=== PATIENT | female | born 1985 | race Caucasian/White ===

== ENCOUNTER 2017-01-16 18:46 | Emergency (ER) | payer SELFPAY ==
[~2017-01-16] VITALS: Ht 170.2 cm; Wt 86.4 kg
[2017-01-16 18:50] VITALS: TEMP 36.9; Ht 170.2 cm; Wt 86.4 kg
[2017-01-16] MEDS ORDERED: HUMIRA INJ (19:36)
[2017-01-16] MEDS ORDERED: PRED10TA PO (19:36)
[2017-01-16] MEDS ORDERED: DEXAMETHASONE SOD INJ 4 MG/ML VIAL IV STA (19:40)
[2017-01-16] MEDS ORDERED: ALBUT/IPRATROP 3MG/0.5MG NEB 3 ML VIAL INH STA (19:40)
[2017-01-16] MEDS ORDERED: BENZONATATE 100MG CAP PO ONE (19:45)
[2017-01-16 20:02] LABS: BASO % 0.1 %; BASO ABS # 0.01 K/uL (0-0.2); COMPLETE YES; IG% 0.5 %; LYMPH % 18.1 %; LYMPH ABS # 1.38 K/uL (1.2-3.4); MEAN CORPUSCULAR HEMOGLOBIN 29.4 pg (25-34); MEAN CORPUSCULAR HGB CONC 33.4 g/dl (32-36); MONO % 6.3 %; PLATELET COUNT 233 K/uL (130-400); WHITE BLOOD COUNT 7.63 K/uL (4.8-10.8)
--- NOTE | 2017-01-16 20:15 | DIAGNOSTIC IMAGING REPORT ---
CHEST ONE VIEW PORTABLE CLINICAL HISTORY: 31 years-old Female presenting with sob, left chest pain. TECHNIQUE: Portable upright AP view of the chest was obtained. COMPARISON: None. FINDINGS: Cardiomediastinal silhouette normal. Lungs and pleural spaces clear. Osseous structures normal. Upper abdomen normal. IMPRESSION: 1. No acute cardiopulmonary disease. Electronically signed by: Adryan Burgos M.D. 01/16/2017 8:14 PM Dictated Date/Time: 01/16/2017 8:13 PM
[2017-01-16 20:18] LABS: BLOOD UREA NITROGEN 8 mg/dl (7-18); CREATININE 0.79 mg/dl (0.60-1.20); GLUCOSE 91 mg/dl (70-99)
[2017-01-16 20:19] LABS: ALT/SGPT 17 U/L (12-78); AST/SGOT 12 U/L (15-37); BUN/CREATININE RATIO 9.8 (10-20); CALCIUM 8.3 mg/dl (8.5-10.1); CARBON DIOXIDE 29 mmol/L (21-32); CHLORIDE 106 mmol/L (98-107); POTASSIUM 3.5 mmol/L (3.5-5.1); PREG INTERNAL NEGATIVE QC NEG CLEAR BACKGROUND; PREG INTERNAL POSITIVE QC POS CONTROL LINE; SODIUM 139 mmol/L (136-145)
[2017-01-16 20:23] LABS: ALB/GLOB RATIO 0.8 (0.9-2); ALKALINE PHOSPHATASE 70 U/L (45-117)
[2017-01-16] MEDS ORDERED: OPTIRAY 320 IV PRN (21:00)
[2017-01-16] MEDS ORDERED: DiphenhydrAMINE HCL 50 MG/ML VIAL IV STA (21:13)
--- NOTE | 2017-01-16 21:21 | DIAGNOSTIC IMAGING REPORT ---
(CHEST FOR PE) ANGIO WITH CLINICAL HISTORY: 31 years-old Female presenting with left-sided chest pain, elevated d-dimer, dizziness, clinical concern for pulmonary embolus. TECHNIQUE: Multidetector CT angiography of the chest was performed after administration of intravenous contrast. 3-D volumetric and/or maximum intensity projection (MIP) images were subsequently reconstructed for review. IV contrast: 94 mL of Optiray 320. A dose lowering technique was used consistent with the principles of ALARA (as low as reasonably achievable). COMPARISON: Chest x-ray performed earlier the same day. CT DOSE (mGy.cm): The estimated cumulative dose is 266.79 mGy.cm. FINDINGS: Industrial Organization Manager topogram: Unremarkable. Pulmonary vasculature: The study is adequate for assessment of the pulmonary vascular tree. No filling defect within the pulmonary arteries to suggest embolus. Main pulmonary artery is not enlarged. No flattening of the interventricular septum. No intracardiac intracardiac filling defect. No reflux of contrast into the hepatic veins. Remaining chest: On soft tissue windows, normal thyroid and thoracic inlet. Small right hilar lymph nodes with less pronounced small left hilar lymph nodes. Normal aorta. Normal heart size. No pericardial or pleural effusion. Upper abdomen normal. On lung windows, minimal dependent changes likely atelectasis. Airways patent. On bone windows, normal osseous structures. IMPRESSION: 1. No evidence of pulmonary embolus. No acute intrathoracic pathology. Electronically signed by: Adryan Burgos M.D. 01/16/2017 9:19 PM Dictated Date/Time: 01/16/2017 9:13 PM
--- NOTE | 2017-01-16 22:09 | EMERGENCY ROOM VISIT NOTE ---
History Report prepared by Wilver: Lilly Harrington Under the Supervision of: Dr. Tiarra Miguel D.O. First contact with patient: 19:26 Chief Complaint: SHORTNESS OF BREATH Stated Complaint: SOB, LIGHTHEADED, REFERRED Nursing Triage Summary: Patient reports shortness of breath, cough, and left rib pain for almost a week. Patient seen at urgent care and sent here for further evaluation. History of Present Illness The patient is a 31 year old female who presents to the Emergency Room with complaints of persistent SOB starting 1200 today. The patient has had cold symptoms with cough and rhinorrhea for the past 3-4 days. Her cough has been producing a yellow/green sputum. She had been having some left sided rib pain which she attributed to coughing. She has been using Dayquil, Nyquil, and cough drops. Around 1200 today, she started feeling SOB and lightheaded. She feels she cannot get enough air, like there is something sitting on her chest. She was sent to the ED from urgent care. She does not have any pain with breathing. She does not feel congested anymore. She has a headache across the front of her head. She denies any fever, palpitations, chest pain, or leg swelling. She has not gotten a flu shot this year. She has a history of rheumatoid arthritis and is on Humira and prednisone. She is not on control pills. She denies any family history of rheumatoid arthritis or other autoimmune disease. She has had a pleural effusion in the past. She has 5 children and is the director of a daycare. She has many sick contacts. Source of History: patient Onset: 1200 Position: other (global) Quality: other (SOB) Timing: other (persistent) Associated Symptoms: + headache, + cough, + chest pain, No fevers Note: Pt reports rhinorrhea, lightheadedness. Pt denies palpitations, leg swelling. Review of Systems See HPI for pertinent positives & negatives. A total of 10 systems reviewed and were otherwise negative. Past Medical & Surgical Medical Problems: (1) Rheumatoid arthritis Family History No pertinent family history stated. Social History Smoking Status: Never Smoker Housing Status: lives with family Occupation Status: employed Current/Historical Medications Scheduled Benzonatate (Tessalon Perles), 100 MG PO Q8 Guaifenesin-Codeine (Guaifenesin/Codeine), 5-10 ML PO HS Prednisone (Prednisone), 10 MG PO DAILY [Humira], 1 DOSE INJ [id number] Allergies Coded Allergies: Naproxen (Unverified Allergy, Unknown, GI ISSUES, 01/16/17) Physical Exam Vital Signs Date Time Temp Pulse Resp B/P (MAP) Pulse Ox O2 Delivery O2 Flow Rate FiO2 01/16/17 22:50 89 18 113/70 96 01/16/17 21:30 89 18 122/74 98 Room Air 01/16/17 20:22 95 18 116/69 97 Room Air 01/16/17 19:50 79 01/16/17 19:44 96 Room Air 01/16/17 18:50 36.9 86 20 137/85 96 Room Air Physical Exam GENERAL: hoarse voice, alert, well appearing, well nourished, no distress, non- toxic EYE EXAM: normal conjunctiva, PERRL and EOM's grossly intact OROPHARYNX: no exudate, no erythema, lips, buccal mucosa, and tongue normal and mucous membranes are moist NECK: supple, no nuchal rigidity, no adenopathy, non-tender LUNGS: Clear to auscultation. Normal chest wall mechanics HEART: no murmurs, S1 normal and S2 normal ABDOMEN: abdomen soft, non-tender, normo-active bowel sounds, no masses, no rebound or guarding. BACK: Back is symmetrical on inspection and there is no deformity, no midline tenderness, no CVA tenderness. SKIN: no rashes and no bruising UPPER EXTREMITIES: upper extremities are grossly normal. LOWER EXTREMITIES: No pitting edema. NEURO EXAM: Normal sensorium, cranial nerves II-XII grossly intact, normal speech, no gross weakness of arms, no gross weakness of legs. Medical Decision & Procedures ER Provider Diagnostic Interpretation: Radiology results have been interpreted by the radiologist and reviewed by me. CHEST ONE VIEW PORTABLE CLINICAL HISTORY: 31 years-old Female presenting with sob, left chest pain. TECHNIQUE: Portable upright AP view of the chest was obtained. COMPARISON: None. FINDINGS: Cardiomediastinal silhouette normal. Lungs and pleural spaces clear. Osseous structures normal. Upper abdomen normal. IMPRESSION: 1. No acute cardiopulmonary disease. Electronically signed by: Adryan Burgos M.D. 01/16/2017 8:14 PM Dictated Date/Time: 01/16/2017 8:13 PM (CHEST FOR PE) ANGIO WITH CLINICAL HISTORY: 31 years-old Female presenting with left-sided chest pain, elevated d-dimer, dizziness, clinical concern for pulmonary embolus. TECHNIQUE: Multidetector CT angiography of the chest was performed after administration of intravenous contrast. 3-D volumetric and/or maximum intensity projection (MIP) images were subsequently reconstructed for review. IV contrast: 94 mL of Optiray 320. A dose lowering technique was used consistent with the principles of ALARA (as low as reasonably achievable). COMPARISON: Chest x-ray performed earlier the same day. CT DOSE (mGy.cm): The estimated cumulative dose is 266.79 mGy.cm. FINDINGS: Simulation Technician topogram: Unremarkable. Pulmonary vasculature: The study is adequate for assessment of the pulmonary vascular tree. No filling defect within the pulmonary arteries to suggest embolus. Main pulmonary artery is not enlarged. No flattening of the interventricular septum. No intracardiac intracardiac filling defect. No reflux of contrast into the hepatic veins. Remaining chest: On soft tissue windows, normal thyroid and thoracic inlet. Small right hilar lymph nodes with less pronounced small left hilar lymph nodes. Normal aorta. Normal heart size. No pericardial or pleural effusion. Upper abdomen normal. On lung windows, minimal dependent changes likely atelectasis. Airways patent. On bone windows, normal osseous structures. IMPRESSION: 1. No evidence of pulmonary embolus. No acute intrathoracic pathology. Electronically signed by: Adryan Burgos M.D. 01/16/2017 9:19 PM Dictated Date/Time: 01/16/2017 9:13 PM Laboratory Results 01/16/17 19:50 Red Blood Count 5.00, Mean Corpuscular Volume 88.0, Mean Corpuscular Hemoglobin 29.4, Mean Corpuscular Hemoglobin Concent 33.4, Mean Platelet Volume 10.0, Neutrophils (%) (Auto) 73.0, Lymphocytes (%) (Auto) 18.1, Monocytes (%) (Auto) 6.3, Eosinophils (%) (Auto) 2.0, Basophils (%) (Auto) 0.1, Neutrophils # (Auto) 5.57, Lymphocytes # (Auto) 1.38, Monocytes # (Auto) 0.48, Eosinophils # (Auto) 0.15, Basophils # (Auto) 0.01 01/16/17 19:50 Test 01/16/17 19:50 White Blood Count 7.63 K/uL (4.8-10.8) Red Blood Count 5.00 M/uL (4.2-5.4) Hemoglobin 14.7 g/dL (12.0-16.0) Hematocrit 44.0 % (37-47) Mean Corpuscular Volume 88.0 fL (80-100) Mean Corpuscular Hemoglobin 29.4 pg (25-34) Mean Corpuscular Hemoglobin Concent 33.4 g/dl (32-36) Platelet Count 233 K/uL (130-400) Mean Platelet Volume 10.0 fL (7.4-10.4) Neutrophils (%) (Auto) 73.0 % Lymphocytes (%) (Auto) 18.1 % Monocytes (%) (Auto) 6.3 % Eosinophils (%) (Auto) 2.0 % Basophils (%) (Auto) 0.1 % Neutrophils # (Auto) 5.57 K/uL (1.4-6.5) Lymphocytes # (Auto) 1.38 K/uL (1.2-3.4) Monocytes # (Auto) 0.48 K/uL (0.11-0.59) Eosinophils # (Auto) 0.15 K/uL (0-0.5) Basophils # (Auto) 0.01 K/uL (0-0.2) RDW Standard Deviation 38.2 fL (36.4-46.3) RDW Coefficient of Variation 12.0 % (11.5-14.5) Immature Granulocyte % (Auto) 0.5 % Immature Granulocyte # (Auto) 0.04 K/uL (0.00-0.02) D-Dimer 1130 ug/L FEU (0-500) Anion Gap 4.0 mmol/L (3-11) Est Creatinine Clear Calc Drug Dose 114.4 ml/min Estimated GFR () 114.0 Estimated GFR (Non- 98.4 BUN/Creatinine Ratio 9.8 (10-20) Calcium Level 8.3 mg/dl (8.5-10.1) Total Bilirubin 0.3 mg/dl (0.2-1) Aspartate Amino Transf (AST/SGOT) 12 U/L (15-37) Alanine Aminotransferase (ALT/SGPT) 17 U/L (12-78) Alkaline Phosphatase 70 U/L (45-117) Troponin I < 0.015 ng/ml (0-0.045) Total Protein 7.5 gm/dl (6.4-8.2) Albumin 3.4 gm/dl (3.4-5.0) Globulin 4.1 gm/dl (2.5-4.0) Albumin/Globulin Ratio 0.8 (0.9-2) Human Chorionic Gonadotropin, Qual NEG (NEG) Laboratory results per my review. Medications Administered Medications (Trade) Dose Ordered Sig/Gosia Route Start Time Stop Time Status Last Admin Dose Admin Albuterol/ Ipratropium (Duoneb) 3 ml NOW STAT INH 01/16/17 19:40 01/16/17 19:42 DC 01/16/17 19:51 3 ML Dexamethasone Sodium Phosphate (Decadron Inj) 10 mg NOW STAT IV 01/16/17 19:40 01/16/17 19:42 DC 01/16/17 19:51 10 MG Benzonatate (Tessalon Perles Cap) 100 mg NOW ONCE PO 01/16/17 19:45 01/16/17 19:46 DC 01/16/17 19:51 100 MG Albuterol (Ventolin Hfa Inhaler) 2 puffs NOW ONCE INH 01/16/17 22:15 01/16/17 22:16 DC 01/16/17 22:17 2 PUFFS Codeine Phosphate/ Guaifenesin (Robitussin-AC Sugar Free Syrup) 10 ml NOW STAT PO 01/16/17 22:40 01/16/17 22:41 DC 01/16/17 22:46 10 ML ECG Indication: SOB/dyspnea Rate (beats per minute): 77 Rhythm: sinus rhythm Findings: no acute ischemic change, no ectopy, other (normal axis, normal intervals) ED Course 1930: The patient was evaluated in room C10. A complete history and physical exam was performed. 1939: Decadron Inj 10 mg IV, Duoneb 3 ml INH. 1944: Benzonatate 100 mg PO. 2108: I reevaluated the patient. She is feeling itchy after CT. 2150: I reevaluated the patient. She is feeling much better. I discussed the findings and the treatment plan with the patient. She verbalizes agreement and understanding. She was discharged home. 2214: Albuterol 2 puffs INH. 2240: Codeine Phosphate/Guaifenesin 10 ml PO. Medical Decision Differential diagnoses includes but is not limited to pneumonia, bronchitis, COPD/Asthma exacerbation, pneumothorax, pulmonary embolism, congestive heart failure, acute coronary syndrome Patient likely with severe upper respiratory infection/viral syndrome and chest pain secondary to frequent coughing and likely pulled intercostal muscle. Given patient's history of autoimmune disease and relative immunocompromise state, labs and imaging performed. Doubt bacteremia/sepsis, no evidence of PE, dissection, tamponade, effusion, focal consolidation. Likely patient with upper respiratory infection and possibly evolving bronchitis. Given sick contacts at home and at her job, discussed with her most likely viral in origin. Patient felt improved following use of MDI/spacer as well as additional medications here. Vital signs otherwise stable. Patient never hypoxic. Discussed with patient follow-up with family doctor as a precaution, use of additional medications for symptomatic treatment, symptoms to watch return the emergency room for, continued use of routine prescribed medications, adequate hydration and diet, she verbalized understanding was agreeable with plan. Medication Reconcilliation Current Medication List: was personally reviewed by me Blood Pressure Screening Patient's blood pressure: Normal blood pressure Blood pressure disposition: Did not require urgent referral Impression Primary Impression: URI (upper respiratory infection) Additional Impression: Chest pain Scribe Attestation The scribe's documentation has been prepared under my direction and personally reviewed by me in its entirety. I confirm that the note above accurately reflects all work, treatment, procedures, and medical decision making performed by me. Departure Information Dispostion Home / Self-Care Prescriptions Guaifenesin-Codeine (GUAIFENESIN/CODEINE) 1 Maggie Maggie 5-10 ML PO HS, #240 ML Prov: Tiarra Miguel, DO 01/16/17 Benzonatate (Tessalon Perles) 100 Mg Cap 100 MG PO Q8 for Cough, #30 CAP Prov: Tiarra Miguel, DO 01/16/17 Referrals No Doctor, Assigned (PCP) Patient Instructions My [facility] Additional Instructions Please call and follow-up with your family doctor. You may use the inhaler up to every 4 hours as needed for chest tightness and trouble breathing. Please use the cough medication as prescribed. The cough syrup may be used at night before bed, do not take it and drive. If you have any worsening trouble breathing, worsening chest pain, or you have any other new concerns, please return the emergency room. Problem Qualifiers Primary Impression: URI (upper respiratory infection) URI type: unspecified URI Qualified Codes: J06.9 - Acute upper respiratory infection, unspecified Additional Impression: Chest pain Chest pain type: chest pain on breathing Qualified Codes: R07.1 - Chest pain on breathing
[2017-01-16] MEDS ORDERED: GUAI100S6 PO (22:10)
[2017-01-16] MEDS ORDERED: BENZ100C84 PO (22:10)
[2017-01-16] MEDS ORDERED: ALBUTEROL HFA 8 GM INHALER INH ONE (22:15)
[2017-01-16] MEDS ORDERED: HYCODAN 60ML BOTTLE HOMEPACK ONE (22:25)
[2017-01-16] MEDS ORDERED: GUAIFENESIN/CODEINE 100MG/10MG 5ML UDC PO STA (22:40)
[2017-01-16 22:50] VITALS: BP 113/70; PULSE 89; O2SAT 96
== END 2017-01-16 22:50 | disposition home or self-care (01) ==
LOC: C.EDB 18:48 → C.EDC 22:50
DX: J06.9 Acute upper respiratory infection, unspecified (principal); R07.1 Chest pain on breathing; M06.9 Rheumatoid arthritis, unspecified; Z79.899 Other long term (current) drug therapy

== ENCOUNTER 2017-07-13 10:14 | Emergency (ER) | payer OTHER ==
[~2017-07-13] VITALS: Ht 170.2 cm; Wt 77.9 kg
[~2017-07-13 10:14] MED LIST: BENZ100C84 PO; GUAI100S6 PO; HUMIRA INJ; PRED10TA PO
[2017-07-13 10:21] VITALS: TEMP 37.1; Ht 170.2 cm; Wt 77.9 kg
[2017-07-13] MEDS ORDERED: ONDANSETRON INJ 2 MG/ML 2 ML VIAL IV STA (10:42)
[2017-07-13] MEDS ORDERED: MoRPHine SULFATE 4 MG/ML 1 ML CARP\\VIAL IV STA (10:42)
[2017-07-13] MEDS ORDERED: LEFL10TA PO (10:45)
[2017-07-13] MEDS ORDERED: ADAL40KI INJ (10:45)
[2017-07-13 11:09] LABS: EOS % 1.2 %; EOS ABS # 0.05 K/uL (0-0.5); HEMATOCRIT 43.3 % (37-47); HEMOGLOBIN 15.2 g/dL (12.0-16.0); IG# 0.01 K/uL (0.00-0.02); LYMPH % 14.6 %; LYMPH ABS # 0.62 K/uL (1.2-3.4); MEAN CELL VOLUME 86.6 fL (80-100); MEAN CORPUSCULAR HEMOGLOBIN 30.4 pg (25-34); MEAN CORPUSCULAR HGB CONC 35.1 g/dl (32-36); MEAN PLATELET VOLUME 10.1 fL (7.4-10.4); MONO % 7.3 %; MONO ABS # 0.31 K/uL (0.11-0.59); NEUT % 76.7 %; NEUT ABS # 3.26 K/uL (1.4-6.5); PLATELET COUNT 179 K/uL (130-400); RED CELL DISTRIBUTION WIDTH CV 12.1 % (11.5-14.5); RED CELL DISTRIBUTION WIDTH SD 38.8 fL (36.4-46.3); WHITE BLOOD COUNT 4.25 K/uL (4.8-10.8)
[2017-07-13 11:24] LABS: ALBUMIN 3.5 gm/dl (3.4-5.0); CALCIUM 8.2 mg/dl (8.5-10.1); CREATININE 0.66 mg/dl (0.60-1.20); POTASSIUM 3.5 mmol/L (3.5-5.1)
[2017-07-13 11:27] LABS: TOTAL PROTEIN 7.3 gm/dl (6.4-8.2)
[2017-07-13 12:14] VITALS: BP 101/72; PULSE 72; O2SAT 97
--- NOTE | 2017-07-13 12:24 | DIAGNOSTIC IMAGING REPORT ---
GALLBLADDER-ABD LIMITED HISTORY: 32 years-old Female upper abd pain eval for cholelithiasis acute right upper quadrant abdominal pain COMPARISON: CTA of the chest 01/16/2017 TECHNIQUE: Multiple real-time sonographic images of the abdominal right upper quadrant were obtained assessing grayscale appearance FINDINGS: The pancreas appears unremarkable. The liver is within normal limits without focal mass or intrahepatic biliary ductal dilation identified. There is a 3 mm echogenic nonshadowing structure along the dependent gallbladder lumen. No shadowing cholelithiasis, wall thickening or pericholecystic fluid. Common bile duct measures within the upper limits of normal at 6 mm. Right kidney is unremarkable as seen. IMPRESSION: 1. No cholelithiasis or sonographic evidence of acute cholecystitis. 2. 3 mm echogenic non-shadowing structure along the dependent gallbladder lumen suggests sludge ball or gallbladder polyp. 3. Common bile duct measures in the upper limits of normal at 6 mm. The above report was generated using voice recognition software. It may contain grammatical, syntax or spelling errors. Electronically signed by: Miguel Gomez M.D. 07/13/2017 12:22 PM Dictated Date/Time: 07/13/2017 12:20 PM
[2017-07-13] MEDS ORDERED: ONDA4TAB10 SL (12:29)
--- NOTE | 2017-07-13 16:34 | EMERGENCY ROOM VISIT NOTE ---
History Report prepared by Wilver: Lilly Harrington Under the Supervision of: Dr. Gary Good M.D. First contact with patient: 10:34 Chief Complaint: VOMITING Stated Complaint: STOMACH PAIN,VOMITING Nursing Triage Summary: triage note: pt reports since last night nausea, vomitting, diarrhea, abd cramping. History of Present Illness The patient is a 32 year old female who presents to the Emergency Room with complaints of worsening abdominal pain starting 1 week ago. The pain is in her mid upper abdomen. It worsened yesterday after she ate a sandwich and chips for lunch. She also reports nausea and vomiting since last night. She had a fever of 101. Her stools have been loose, light colored, and floating. They have been hard to flush. She has not had any blood in her stool. She feels thirsty, but has had abdominal pain with drinking water. She has been slightly lightheaded with sitting up and standing. She denies any cough, runny nose, abnormal vaginal discharge, vaginal bleeding, or problems urinating. She has been before. She currently denies any chance of . She denies any history of gallbladder problems. She has a history of RA. She denies any recent foreign travel or antibiotic use and does not work in healthcare. Source of History: patient Onset: 1 week ago Position: abdomen Timing: worsening Modifying Factors (Worsening): eating Associated Symptoms: + nausea, + vomiting, + diarrhea, No cough, No hematochezia, No urinary symptoms Note: Pt reports lightheadedness. Pt denies abnormal vaginal discharge/bleeding. Review of Systems See HPI for pertinent positives & negatives. A total of 10 systems reviewed and were otherwise negative. Past Medical & Surgical Medical Problems: (1) Rheumatoid arthritis Family History No pertinent family history stated. Social History Smoking Status: Never Smoker Housing Status: lives with family Occupation Status: employed Current/Historical Medications Scheduled Adalimumab (Humira Pen), 40 MG INJ [id number] Leflunomide (Arava), 10 MG PO QPM Ondasetron Odt (Zofran Odt), 4 MG SL Q6H Prednisone (Prednisone), 10 MG PO DAILY Allergies Coded Allergies: Naproxen (Unverified Allergy, Unknown, GI ISSUES, 07/13/17) Physical Exam Vital Signs Date Time Temp Pulse Resp B/P (MAP) Pulse Ox O2 Delivery O2 Flow Rate FiO2 07/13/17 12:14 72 18 101/72 97 Room Air 07/13/17 11:10 62 18 101/77 97 Room Air 07/13/17 10:21 37.1 108 18 117/78 96 Room Air Physical Exam Constitutional: Vital signs reviewed. Eyes: Pupils are equal round reactive to light. Conjunctiva are noninjected. ENT: Pharynx is clear without erythema or exudate. Mucous membranes are dry. Neck supple without meningeal signs. Respiratory: Clear to auscultation bilaterally. Breath sounds are equal bilaterally. Cardiovascular: Regular rate and rhythm. No rubs or gallops. GI: Soft, nondistended, epigastric and RUQ tenderness. No Eugene's sign. Bowel sounds are present. Musculoskeletal: No peripheral edema. No CVA tenderness. Integumentary: No cyanosis. Neurological: The patient is awake and alert. No focal deficits. Psychiatric: Normal affect. Medical Decision & Procedures ER Provider Diagnostic Interpretation: Radiology results as stated below per my review and the radiologist's interpretation: GALLBLADDER-ABD LIMITED HISTORY: 32 years-old Female upper abd pain eval for cholelithiasis acute right upper quadrant abdominal pain COMPARISON: CTA of the chest 01/16/2017 TECHNIQUE: Multiple real-time sonographic images of the abdominal right upper quadrant were obtained assessing grayscale appearance FINDINGS: The pancreas appears unremarkable. The liver is within normal limits without focal mass or intrahepatic biliary ductal dilation identified. There is a 3 mm echogenic nonshadowing structure along the dependent gallbladder lumen. No shadowing cholelithiasis, wall thickening or pericholecystic fluid. Common bile duct measures within the upper limits of normal at 6 mm. Right kidney is unremarkable as seen. IMPRESSION: 1. No cholelithiasis or sonographic evidence of acute cholecystitis. 2. 3 mm echogenic non-shadowing structure along the dependent gallbladder lumen suggests sludge ball or gallbladder polyp. 3. Common bile duct measures in the upper limits of normal at 6 mm. The above report was generated using voice recognition software. It may contain grammatical, syntax or spelling errors. Electronically signed by: Miguel Gomez M.D. 07/13/2017 12:22 PM Dictated Date/Time: 07/13/2017 12:20 PM Laboratory Results 07/13/17 10:55 Red Blood Count 5.00, Mean Corpuscular Volume 86.6, Mean Corpuscular Hemoglobin 30.4, Mean Corpuscular Hemoglobin Concent 35.1, Mean Platelet Volume 10.1, Neutrophils (%) (Auto) 76.7, Lymphocytes (%) (Auto) 14.6, Monocytes (%) (Auto) 7.3, Eosinophils (%) (Auto) 1.2, Basophils (%) (Auto) 0.0, Neutrophils # (Auto) 3.26, Lymphocytes # (Auto) 0.62, Monocytes # (Auto) 0.31, Eosinophils # (Auto) 0.05, Basophils # (Auto) 0.00 07/13/17 10:55 Test 07/13/17 10:55 White Blood Count 4.25 K/uL (4.8-10.8) Red Blood Count 5.00 M/uL (4.2-5.4) Hemoglobin 15.2 g/dL (12.0-16.0) Hematocrit 43.3 % (37-47) Mean Corpuscular Volume 86.6 fL (80-100) Mean Corpuscular Hemoglobin 30.4 pg (25-34) Mean Corpuscular Hemoglobin Concent 35.1 g/dl (32-36) Platelet Count 179 K/uL (130-400) Mean Platelet Volume 10.1 fL (7.4-10.4) Neutrophils (%) (Auto) 76.7 % Lymphocytes (%) (Auto) 14.6 % Monocytes (%) (Auto) 7.3 % Eosinophils (%) (Auto) 1.2 % Basophils (%) (Auto) 0.0 % Neutrophils # (Auto) 3.26 K/uL (1.4-6.5) Lymphocytes # (Auto) 0.62 K/uL (1.2-3.4) Monocytes # (Auto) 0.31 K/uL (0.11-0.59) Eosinophils # (Auto) 0.05 K/uL (0-0.5) Basophils # (Auto) 0.00 K/uL (0-0.2) RDW Standard Deviation 38.8 fL (36.4-46.3) RDW Coefficient of Variation 12.1 % (11.5-14.5) Immature Granulocyte % (Auto) 0.2 % Immature Granulocyte # (Auto) 0.01 K/uL (0.00-0.02) Urine Color YELLOW Urine Appearance CLEAR (CLEAR) Urine pH 7.0 (4.5-7.5) Urine Specific [place] 1.005 (1.000-1.030) Urine Protein NEG (NEG) Urine Glucose (UA) NEG (NEG) Urine Ketones NEG (NEG) Urine Occult Blood NEG (NEG) Urine Nitrite NEG (NEG) Urine Bilirubin NEG (NEG) Urine Urobilinogen NEG (NEG) Urine Leukocyte Esterase NEG (NEG) Urine Test NEG (NEG) Anion Gap 7.0 mmol/L (3-11) Est Creatinine Clear Calc Drug Dose 129.2 ml/min Estimated GFR () 133.6 Estimated GFR (Non- 115.3 BUN/Creatinine Ratio 9.3 (10-20) Calcium Level 8.2 mg/dl (8.5-10.1) Total Bilirubin 0.9 mg/dl (0.2-1) Direct Bilirubin 0.2 mg/dl (0-0.2) Aspartate Amino Transf (AST/SGOT) 15 U/L (15-37) Alanine Aminotransferase (ALT/SGPT) 16 U/L (12-78) Alkaline Phosphatase 60 U/L (45-117) Total Protein 7.3 gm/dl (6.4-8.2) Albumin 3.5 gm/dl (3.4-5.0) Lipase 234 U/L (73-393) Laboratory results as reviewed by me. Medications Administered Medications (Trade) Dose Ordered Sig/[place] Route Start Time Stop Time Status Last Admin Dose Admin Morphine Sulfate (MoRPHine SULFATE INJ) 4 mg ONE STAT IV 07/13/17 10:42 07/13/17 10:43 DC 07/13/17 11:10 4 MG Ondansetron HCl (Zofran Inj) 4 mg NOW STAT IV 07/13/17 10:42 07/13/17 10:43 DC 07/13/17 11:10 4 MG ED Course 1037: The patient was evaluated in room C4. A complete history and physical exam was performed. 1042: Zofran Inj 4 mg IV, Morphine Sulfate 4 mg IV. 1226: Upon reevaluation, the patient appeared to have improvement of her symptoms. I discussed tonight's findings with her. She verbalized agreement of the treatment plan. She was discharged home. Medical Decision This is a 32-year-old female who presents with abdominal pain and vomiting and diarrhea. Differential diagnosis includes cholelithiasis, cholecystitis, pancreatitis, gastroenteritis, foodborne illness, dehydration. I did perform a limited focused review of portions of the patient's old chart on the electronic medical record. The patient has had no recent pertinent visits to this hospital. I did evaluate the patient as noted above. Patient has had a week of upper abdominal pain. She also developed vomiting and diarrhea. She has tenderness in the upper abdomen and epigastric region and right upper quadrant. She does not have a Eugene sign. IV access was established. I did treat patient with IV morphine and Zofran. I did order and personally review the patient's urine and as described above. Urine test was negative. I did order and review the patient's blood work as noted in the electronic medical record. Her white blood cell count is slightly low. LFTs and lipase are unremarkable. I did order an ultrasound of the right upper quadrant. I did review the images myself as well as the radiology report as described above. There is no evidence of cholelithiasis or cholecystitis. I did reassess patient. She is feeling much better. I did discuss the test results with the patient. I did recommend she get another CBC because of her mild leukopenia when she follows up with her doctor. She was discharged in good condition. She was given return instructions as outlined below. She was given a prescription for Zofran. Medication Reconcilliation Current Medication List: was personally reviewed by me Blood Pressure Screening Patient's blood pressure: Normal blood pressure Blood pressure disposition: Did not require urgent referral Impression Primary Impression: Upper abdominal pain Additional Impressions: Vomiting Diarrhea Scribe Attestation The scribe's documentation has been prepared under my direct and personally reviewed by me in its entirety. I confirm that the note above accurately reflects all work, treatment, procedures, and medical decision making performed by me. Departure Information Dispostion Home / Self-Care Prescriptions Ondasetron Odt (ZOFRAN ODT) 4 Mg Tab 4 MG SL Q6H for Nausea, #6 TAB Prov: Gary Good M.D. 07/13/17 Referrals Yolande Stokes D.O. (PCP) Forms HOME CARE DOCUMENTATION FORM, IMPORTANT VISIT INFORMATION Patient Instructions ED Abdominal Pain Unkn Cause, My [facility] Additional Instructions You have been examined and treated today on an emergency basis only. This is not a substitute for, or an effort to provide, complete comprehensive medical care. It is impossible to recognize and treat all injuries or illnesses in a single emergency department visit. It is therefore important that you follow up closely with your physician. Call as soon as possible for an appointment. Return for worsening symptoms or if you develop rectal bleeding any other concerning symptoms. Have your doctor recheck your complete blood cell count as your white blood cell count was slightly low today. Problem Qualifiers Additional Impressions: Vomiting Vomiting type: unspecified Vomiting Intractability: non-intractable Nausea presence: with nausea Qualified Codes: R11.2 - Nausea with vomiting, unspecified Diarrhea Diarrhea type: unspecified type Qualified Codes: R19.7 - Diarrhea, unspecified
== END 2017-07-13 12:42 | disposition home or self-care (01) ==
LOC: C.EDB 10:14 → C.EDC 12:42
DX: R10.10 Upper abdominal pain, unspecified (principal); R11.2 Nausea with vomiting, unspecified; M06.9 Rheumatoid arthritis, unspecified; Z79.899 Other long term (current) drug therapy